=== PATIENT | male | born 1985 | race Caucasian/White ===

== ENCOUNTER 2016-10-29 09:04 | Day surgery (SDC) | payer OTHER ==
[~2016-10-29] VITALS: Ht 177.8 cm; Wt 75.0 kg
[2016-10-29] MEDS ORDERED: ROPIvacaine/PF 0.5%, 30 ML ONE (09:28)
[2016-10-29] MEDS ORDERED: EPINEPHRINE 1 MG/ML, 1ML ONE (09:28)
[2016-10-29] MEDS ORDERED: LIDOCAINE/PF 1%, 30ML ONE (09:28)
[2016-10-29] MEDS ORDERED: LACTATED RINGERS 1,000 ML IV SCH (09:56)
[2016-10-29 09:57] VITALS: BP 126/81
[2016-10-29] MEDS ORDERED: LIDOCAINE 1%, 2ML SQ PRN (10:00)
[2016-10-29] MEDS ORDERED: SIMV20TA3 PO (10:01)
[2016-10-29] MEDS ORDERED: FENTANYL PF 250 MCG/5ML ONE ×3 (10:25→12:11)
[2016-10-29] MEDS ORDERED: MIDAZOLAM 1 MG/ML, 2ML ONE ×2 (10:25→12:11)
[2016-10-29] MEDS ORDERED: ONDANSETRON 2MG/ML, 2ML ONE (10:28)
[2016-10-29] MEDS ORDERED: PROPOFOL 10 MG/ML, 20ML ONE (10:28)
[2016-10-29] MEDS ORDERED: CEFAZOLIN 1,000 MG ONE (10:28)
[2016-10-29] MEDS ORDERED: KETOROLAC 30 MG/1 ML ONE (10:28)
[2016-10-29] MEDS ORDERED: PLEASE ENTER ALLERGIES MC SCH ×2 (10:30)
[2016-10-29] MEDS ORDERED: HYDROmorphone 1 MG/ML, 1ML IV PRN (11:00)
[2016-10-29] MEDS ORDERED: ONDANSETRON 2MG/ML, 2ML IVPush PRN (11:00)
[2016-10-29] MEDS ORDERED: KETOROLAC 30 MG/1 ML IV PRN (11:00)
[2016-10-29] MEDS ORDERED: FENTANYL PF 100 MCG/2ML IV PRN (11:00)
[2016-10-29] MEDS ORDERED: ACETAMINOPHEN 325 MG TABLET PO PRN (11:00)
[2016-10-29] MEDS ORDERED: MEPERIDINE/PF 25MG/0.5ML IVPush PRN (11:00)
[2016-10-29] MEDS ORDERED: OXYcodone 5 MG/5 ML ORAL.SOL UDC PO PRN (11:00)
[2016-10-29] MEDS ORDERED: OXYcodone 5 MG/5 ML ORAL.SOL UDC ONE (11:37)
[2016-10-29] MEDS ORDERED: ACETAMINOPHEN 650 MG/20.3 ML UDC ONE (12:12)
== END 2016-10-29 13:21 ==
LOC: OUT 09:04
PROVIDERS: ATTEND Orthopaedic Surgery
DX: M23.42 Loose body in knee, left knee (principal); M94.262 Chondromalacia, left knee
CPT/HCPCS: 29874; J0171; J0690; J1885; J2250; J2405; J2704; J2795; J3010; J3490; J7120